=== PATIENT | male | born 1940 | race Two or more races ===

== ENCOUNTER 2023-10-19 18:01 | Inpatient (IN) | payer MEDICARE, MEDICAID ==
[~2023-10-19] VITALS: Ht 167.6 cm; Wt 62.2 kg
[2023-10-19 21:06] LABS: BASOPHILS % (AUTO) 0.5 % (0.0-2.0); EOSINOPHILS % (AUTO) 1.6 % (1.0-6.0); HEMATOCRIT 39.3 % (41-53); HEMOGLOBIN 13.3 g/dL (13.5-17.5); LYMPHOCYTES # (AUTO) 0.5 K/uL (1.0-4.8); LYMPHOCYTES % (AUTO) 10.9 % (22.0-44.0); MEAN CORPUSCULAR HEMOGLOBIN 31.3 pg (26.0-34.0); MEAN CORPUSCULAR HGB CONC 33.9 G/dL (31.0-37.0); MEAN CORPUSCULAR VOLUME 92 fL (80-100); MONOCYTES # (AUTO) 0.4 K/uL (0.1-1.0); MONOCYTES % (AUTO) 9.1 % (2.0-9.0); NEUTROPHILS # (AUTO) 3.5 K/uL (1.8-7.7); NEUTROPHILS % (AUTO) 77.9 % (40.0-70.0); PLATELET COUNT (AUTO) 161 K/uL (150-450); RED BLOOD CELL COUNT(AUTO) 4.26 MIL/uL (4.50-5.90); RED CELL DISTRIBUTION WIDTH 13.7 % (11.5-14.5); WHITE BLOOD COUNT (AUTO) 4.5 K/uL (4.5-11.0)
[2023-10-19 21:16] LABS: ANION GAP 9 mmol/L (8-16); CALCIUM, TOTAL 8.8 mg/dL (8.8-10.5); CARBON DIOXIDE 28 mmol/L (22-29); CHLORIDE 104 mmol/L (98-107); CREATININE 0.87 mg/dL (0.60-1.30); GLOMERULAR FILTR. RATE CALC > 60 mL/min (>60); GLUCOSE,RANDOM 135 mg/dL (70-110); POTASSIUM 3.6 mmol/L (3.5-5.1); SODIUM SERUM 141 mmol/L (136-145); UREA NITROGEN, BLOOD 22 mg/dL (7-18)
[2023-10-19 21:21] LABS: ALANINE AMINOTRANSFERASE 12 U/L (12-78); ALBUMIN 3.5 g/dL (3.4-5.0); ALKALINE PHOSPHATASE 81 U/L (46-116); ASPARTATE AMINOTRANSFERASE 18 U/L (15-37); TOTAL PROTEIN, SERUM 6.5 g/dL (6.4-8.2)
[2023-10-19 21:22] LABS: TROPONIN I-HIGH SENSITIVITY 12 ng/L (<76)
[2023-10-19 21:25] LABS: ALCOHOL, BLOOD (SERUM) < 3 mg/dL (0-10)
[2023-10-20] MEDS: AmLODIPine BESYLATE 5 MG TABLET PO ONE (00:48)
[2023-10-20 00:56] LABS: AMPHET/METH SCREEN,URINE NEGATIVE (NEGATIVE); BARBITURATE SCREEN, URINE NEGATIVE (NEGATIVE); BENZODIAZEPINES SCREEN,URINE NEGATIVE (NEGATIVE); CANNABINOID SCREEN,URINE NEGATIVE (NEGATIVE); COCAINE SCREEN,URINE NEGATIVE (NEGATIVE); METHADONE SCREEN, URINE NEGATIVE (NEGATIVE); OPIATE SCREEN,URINE NEGATIVE (NEGATIVE); PHENCYCLIDINE SCREEN,URINE NEGATIVE (NEGATIVE)
[2023-10-20 00:59] LABS: ALCOHOL, URINE DRUG SCREEN NEGATIVE (NEGATIVE)
[2023-10-20 01:00] LABS: APPEARANCE,URINE CLEAR (CLEAR); BILIRUBIN,URINE NEGATIVE (NEGATIVE); COLOR,URINE LIGHT YELLOW (YELLOW); GLUCOSE, URINE (UA) NEGATIVE (NEGATIVE); KETONES,URINE NEGATIVE (NEGATIVE); LEUKOCYTE ESTERASE ,URINE NEGATIVE (NEGATIVE); NITRATE,URINE NEGATIVE (NEGATIVE); OCCULT BLOOD,URINE TRACE (NEGATIVE); PH,URINE 6.5 (5.0-8.0); PH,URINE DRUG SCREEN 6.5 (5.0-8.0); PROTEIN,URINE TRACE mg/dL (NEGATIVE); SPECIFIC GRAVITIY, URINE 1.024 (1.003-1.030); UROBILINOGEN,URINE <=1.0 mg/dL (<=1.0)
[2023-10-20 01:13] LABS: COVID AG,FIA SOURCE NASAL SWAB
[2023-10-20 01:28] LABS: SARS-COV2 (COVID) ANTIGEN,FIA Negative (Negative)
[2023-10-20 01:41] LABS: BACTERIA,URINE None Seen /HPF (None Seen); RBC,URINE 0-2 /HPF (0-2); SQUAMOUS EPITHELIAL CELL,UR Few /LPF (None Seen); WBC,URINE None Seen /HPF (0-5)
[2023-10-20 02:20] VITALS: BP 177/76; PULSE 61; RESP 18; TEMP 98.1; O2SAT 99
[2023-10-20] MEDS ORDERED: PETROLATUM,WHITE 28 GM JELLY TP PRN (06:30)
[2023-10-20] MEDS ORDERED: ACETAMINOPHEN 325 MG TABLET PO PRN (06:30)
[2023-10-20] MEDS ORDERED: MAG HYDROX/ALUMINUM HYD/SIMETH ES 30 ML SUSPENSION UDCUP PO PRN (06:30)
[2023-10-20] MEDS ORDERED: LOPERAMIDE HCL 2 MG CAPSULE PO PRN (06:30)
[2023-10-20] MEDS ORDERED: NICOTINE 14 MG/24 HOUR PATCH TD PRN (06:30)
[2023-10-20] MEDS ORDERED: ALBUTEROL SULFATE HFA 90 MCG/PUFF 8 GM INHALER IH PRN (06:30)
[2023-10-20] MEDS ORDERED: ONDANSETRON HCL 4 MG TABLET PO PRN (06:30)
[2023-10-20] MEDS ORDERED: DOCUSATE SODIUM 100 MG CAPSULE PO PRN (06:30)
[2023-10-20] MEDS: AmLODIPine BESYLATE 5 MG TABLET PO SCH (11:02)
[2023-10-20] MEDS: OLANZapine 5 MG TABLET PO SCH (11:03)
[2023-10-20 14:40] VITALS: BP 165/75; PULSE 73; RESP 18; TEMP 98.6; O2SAT 95
[2023-10-20 20:43] VITALS: BP 156/71; PULSE 53; RESP 18; TEMP 97.9; O2SAT 97
[2023-10-21 07:35] LABS: BASOPHILS % (AUTO) 0.5 % (0.0-2.0); EOSINOPHILS % (AUTO) 3.3 % (1.0-6.0); HEMATOCRIT 41.5 % (41-53); HEMOGLOBIN 14.3 g/dL (13.5-17.5); LYMPHOCYTES # (AUTO) 0.4 K/uL (1.0-4.8); LYMPHOCYTES % (AUTO) 7.8 % (22.0-44.0); MEAN CORPUSCULAR HEMOGLOBIN 31.9 pg (26.0-34.0); MEAN CORPUSCULAR HGB CONC 34.6 G/dL (31.0-37.0); MEAN CORPUSCULAR VOLUME 92 fL (80-100); MONOCYTES # (AUTO) 0.5 K/uL (0.1-1.0); MONOCYTES % (AUTO) 9.7 % (2.0-9.0); NEUTROPHILS # (AUTO) 4.3 K/uL (1.8-7.7); NEUTROPHILS % (AUTO) 78.7 % (40.0-70.0); PLATELET COUNT (AUTO) 161 K/uL (150-450); RED BLOOD CELL COUNT(AUTO) 4.49 MIL/uL (4.50-5.90); RED CELL DISTRIBUTION WIDTH 13.7 % (11.5-14.5); WHITE BLOOD COUNT (AUTO) 5.5 K/uL (4.5-11.0)
[2023-10-21 07:58] LABS: ALANINE AMINOTRANSFERASE 12 U/L (12-78); ALBUMIN 3.3 g/dL (3.4-5.0); ALKALINE PHOSPHATASE 75 U/L (46-116); ANION GAP 10 mmol/L (8-16); ASPARTATE AMINOTRANSFERASE 17 U/L (15-37); BILIRUBIN,TOTAL 1.5 mg/dL (0.1-1.0); CALCIUM, TOTAL 8.5 mg/dL (8.8-10.5); CARBON DIOXIDE 29 mmol/L (22-29); CHLORIDE 106 mmol/L (98-107); CHOL/HDL RATIO 3.4 (4.2-7.3); CHOLESTEROL 210 mg/dL (131-200); CREATININE 0.55 mg/dL (0.60-1.30); GLOMERULAR FILTR. RATE CALC > 60 mL/min (>60); GLUCOSE,RANDOM 104 mg/dL (70-110); HDL CHOLESTEROL 62 mg/dL (40-60); LDL CHOL (CALC.) 138 mg/dL (0-130); POTASSIUM 3.4 mmol/L (3.5-5.1); SODIUM SERUM 145 mmol/L (136-145); TOTAL PROTEIN, SERUM 6.6 g/dL (6.4-8.2); TRIGLYCERIDES 49 mg/dL (15-150); UREA NITROGEN, BLOOD 13 mg/dL (7-18)
[2023-10-21 08:01] LABS: HEMOGLOBIN A1C 5.6 % (3.8-5.6)
[2023-10-21 08:22] LABS: THYROID STIMULATING HORMONE 2.87 uIU/mL (0.36-3.74)
[2023-10-21 10:27] VITALS: BP 179/84; PULSE 71; RESP 18; TEMP 98.1; O2SAT 98
[2023-10-21] MEDS: POTASSIUM CHLORIDE 20 MEQ ER TABLET PO ONE (17:32)
[2023-10-21] MEDS: ZOLPIDEM TARTRATE 10 MG TABLET PO PRN (22:34)
[2023-10-22 00:15] VITALS: BP 122/61; PULSE 70; RESP 18; TEMP 97; O2SAT 98
[2023-10-22 09:27] VITALS: BP 149/79; PULSE 84; RESP 18; TEMP 98; O2SAT 96
[2023-10-22 21:25] VITALS: RESP 18
[2023-10-23] MEDS: LORazepam 2 MG TABLET PO PRN (00:07)
[2023-10-23 09:22] VITALS: BP 162/83; PULSE 70; RESP 20; O2SAT 96
[2023-10-23] MEDS: GuaiFENesin/D-METHORPHAN [SUGAR-FREE] 200-20MG/10 ML SYRUP UDCUP PO PRN (14:22)
[2023-10-23] MEDS: AZITHROMYCIN 500 MG TABLET PO SCH (15:36)
[2023-10-23 20:07] VITALS: BP 132/82; PULSE 84; RESP 18; TEMP 97.4; O2SAT 97
[2023-10-24 08:35] VITALS: BP 144/73; PULSE 90; RESP 18; TEMP 98; O2SAT 98
[2023-10-24 21:07] VITALS: BP 123/77; PULSE 76; RESP 18; TEMP 98.1; O2SAT 97
[2023-10-25 08:00] VITALS: BP 138/69; PULSE 78; RESP 18; TEMP 97; O2SAT 96
[2023-10-25] MEDS: MULTIVITAMINS WITH MINERALS, THERAPEUTIC TABLET PO SCH (08:42)
[2023-10-25 09:07] VITALS: BP 138/69; PULSE 78; RESP 18; TEMP 97; O2SAT 96
[2023-10-25] MEDS: IBUPROFEN 400 MG TABLET PO PRN (09:07)
[2023-10-26 06:47] LABS: ANION GAP 7 mmol/L (8-16); BASOPHILS % (AUTO) 0.4 % (0.0-2.0); CALCIUM, TOTAL 8.8 mg/dL (8.8-10.5); CARBON DIOXIDE 28 mmol/L (22-29); CHLORIDE 103 mmol/L (98-107); CREATININE 0.65 mg/dL (0.60-1.30); EOSINOPHILS % (AUTO) 1.6 % (1.0-6.0); GLOMERULAR FILTR. RATE CALC > 60 mL/min (>60); GLUCOSE,RANDOM 134 mg/dL (70-110); HEMOGLOBIN 14.6 g/dL (13.5-17.5); LYMPHOCYTES # (AUTO) 0.4 K/uL (1.0-4.8); LYMPHOCYTES % (AUTO) 6.2 % (22.0-44.0); MEAN CORPUSCULAR HEMOGLOBIN 31.8 pg (26.0-34.0); MEAN CORPUSCULAR HGB CONC 33.9 G/dL (31.0-37.0); MEAN CORPUSCULAR VOLUME 94 fL (80-100); MONOCYTES # (AUTO) 0.8 K/uL (0.1-1.0); MONOCYTES % (AUTO) 11.9 % (2.0-9.0); NEUTROPHILS # (AUTO) 5.4 K/uL (1.8-7.7); NEUTROPHILS % (AUTO) 79.9 % (40.0-70.0); PLATELET COUNT (AUTO) 159 K/uL (150-450); POTASSIUM 3.9 mmol/L (3.5-5.1); RED BLOOD CELL COUNT(AUTO) 4.58 MIL/uL (4.50-5.90); RED CELL DISTRIBUTION WIDTH 13.5 % (11.5-14.5); SODIUM SERUM 138 mmol/L (136-145); UREA NITROGEN, BLOOD 22 mg/dL (7-18); WHITE BLOOD COUNT (AUTO) 6.7 K/uL (4.5-11.0)
[2023-10-26 08:39] VITALS: BP 151/77; PULSE 78; RESP 18; TEMP 98.6; O2SAT 95
[2023-10-26 20:08] VITALS: BP 128/77; PULSE 62; RESP 18; TEMP 97.1; O2SAT 98
[2023-10-27 08:36] VITALS: BP 148/76; PULSE 84; RESP 18; TEMP 97.4
[2023-10-27 22:11] VITALS: BP 132/77; PULSE 78; RESP 18; TEMP 97.4; O2SAT 97
[2023-10-28 08:56] VITALS: RESP 18; TEMP 98.3
[2023-10-28 21:32] VITALS: BP 125/62; PULSE 74; RESP 18; TEMP 98.1; O2SAT 97
[2023-10-29 08:02] VITALS: BP 123/72; PULSE 72; RESP 18; TEMP 97.1; O2SAT 98
[2023-10-29 21:19] VITALS: BP 138/75; PULSE 68; RESP 18; TEMP 97.8; O2SAT 97
[2023-10-30 18:37] VITALS: RESP 18
[2023-10-30 20:14] VITALS: BP 121/77; PULSE 76; RESP 18; TEMP 97.4; O2SAT 98
[2023-10-31 08:05] VITALS: BP 146/76; PULSE 77; RESP 18; TEMP 97.1; O2SAT 97
[2023-10-31 20:44] VITALS: BP 133/82; PULSE 82; RESP 18; TEMP 97.9; O2SAT 98
[2023-11-01 08:15] VITALS: BP 155/79; PULSE 69; RESP 17; TEMP 98.4; O2SAT 95
[2023-11-01 20:03] VITALS: BP 121/81; PULSE 72; RESP 18; TEMP 97.9; O2SAT 98
[2023-11-02 08:20] VITALS: BP_SYST 129; BP_SYST 172; BP_DIAS 72; BP_DIAS 82; PULSE 76; RESP 16; TEMP 97.2; O2SAT 97
[2023-11-02 22:48] VITALS: BP 125/70; PULSE 71; RESP 18; TEMP 97.5; O2SAT 98
[2023-11-03 08:30] VITALS: BP 146/92; PULSE 79; RESP 18; TEMP 98.5; O2SAT 96
[2023-11-03 21:08] VITALS: BP 115/71; PULSE 76; RESP 18; TEMP 98.3; O2SAT 97
[2023-11-03 21:24] VITALS: BP 115/71; PULSE 76; RESP 18; TEMP 98.3; O2SAT 97
[2023-11-04 09:18] VITALS: BP 149/74; PULSE 66; RESP 19; TEMP 97.8; O2SAT 98
[2023-11-04 20:43] VITALS: BP 137/67; PULSE 65; RESP 18; TEMP 97.6; O2SAT 97
[2023-11-05 12:00] VITALS: BP 132/83; PULSE 74; RESP 18; TEMP 98.2; O2SAT 98
[2023-11-05 20:47] VITALS: RESP 18
[2023-11-06 11:39] VITALS: BP 133/65; PULSE 86; RESP 19; TEMP 97.6; O2SAT 95
[2023-11-06 22:39] VITALS: RESP 18
[2023-11-07 09:02] VITALS: BP 125/65; PULSE 70; RESP 17; TEMP 98.1; O2SAT 97
[2023-11-07] MEDS: MAGNESIUM HYDROXIDE SUSPENSION 30 ML UDCUP PO PRN (09:35)
[2023-11-07 21:21] VITALS: BP 113/61; PULSE 70; RESP 18; TEMP 97.9; O2SAT 97
[2023-11-08 09:44] VITALS: BP 117/63; PULSE 65; RESP 17; TEMP 97.7; O2SAT 96
[2023-11-08 20:45] VITALS: BP 120/61; PULSE 71; RESP 18; TEMP 98.5; O2SAT 96
[2023-11-09 10:04] VITALS: BP 130/70; PULSE 80; RESP 17; TEMP 97.6; O2SAT 97
[2023-11-09 21:02] VITALS: BP 128/71; PULSE 77; RESP 18; TEMP 97.4; O2SAT 98
[2023-11-10 09:05] VITALS: BP 113/66; PULSE 65; RESP 17; TEMP 98.2; O2SAT 97
[2023-11-10 21:51] VITALS: BP 119/64; PULSE 70; RESP 18; TEMP 97.8; O2SAT 98
[2023-11-11 08:25] VITALS: BP 160/78; PULSE 67; RESP 20; TEMP 97.9; O2SAT 97
[2023-11-11 20:19] VITALS: BP 134/78; PULSE 74; RESP 18; TEMP 98.1; O2SAT 98
[2023-11-12 08:34] VITALS: BP 163/77; PULSE 66; RESP 16; TEMP 98; O2SAT 98
[2023-11-12 10:29] VITALS: BP 146/74; PULSE 68; RESP 18
[2023-11-12 20:08] VITALS: BP 121/81; PULSE 72; RESP 18; TEMP 98.1; O2SAT 92
[2023-11-13] MEDS: HALOPERIDOL 5 MG TABLET PO PRN (01:59)
[2023-11-13 09:57] VITALS: BP 160/87; PULSE 65; RESP 18; TEMP 98; O2SAT 96
[2023-11-13 22:59] VITALS: BP 135/72; PULSE 68; RESP 18; TEMP 98.2; O2SAT 97
[2023-11-14 10:42] VITALS: BP 118/60; PULSE 78; RESP 18; TEMP 98; O2SAT 97
[2023-11-14 21:35] VITALS: RESP 18
[2023-11-15 08:38] VITALS: BP 156/68; PULSE 65; RESP 18; TEMP 97.1; O2SAT 98
[2023-11-15 21:20] VITALS: BP 139/71; PULSE 63; RESP 18; TEMP 97.6; O2SAT 98
[2023-11-16 08:13] VITALS: BP 151/68; PULSE 64; RESP 18; TEMP 97.4; O2SAT 97
[2023-11-16 21:58] VITALS: BP 127/62; PULSE 77; RESP 18; TEMP 97.8; O2SAT 97
[2023-11-17 09:47] VITALS: BP 115/67; PULSE 67; RESP 18; TEMP 97.2; O2SAT 96
[2023-11-17 20:34] VITALS: TEMP 97.8
[2023-11-18 08:14] VITALS: BP 130/65; PULSE 61; RESP 17; TEMP 97; O2SAT 97
[2023-11-18 22:00] VITALS: BP 152/75; PULSE 59; RESP 16; TEMP 98.3; O2SAT 96
[2023-11-19 09:10] VITALS: BP 158/73; PULSE 70; RESP 16; TEMP 97.3; O2SAT 97
[2023-11-19 21:27] VITALS: BP 179/81; PULSE 67; RESP 18; TEMP 98.2; O2SAT 98
[2023-11-20 08:00] VITALS: BP 124/63; PULSE 77; RESP 18; TEMP 97.7; O2SAT 98
[2023-11-20 09:55] VITALS: BP 124/63; PULSE 78; RESP 17; TEMP 98; O2SAT 96
[2023-11-20 20:11] VITALS: BP 113/58; PULSE 68; RESP 18; TEMP 97.6; O2SAT 98
[2023-11-21 09:08] VITALS: BP 158/70; PULSE 63; RESP 18; TEMP 97.3; O2SAT 99
[2023-11-21 20:50] VITALS: BP 132/61; PULSE 66; RESP 18; TEMP 97.6; O2SAT 98
[2023-11-22 09:09] VITALS: BP 158/80; PULSE 79; RESP 18; TEMP 98.4; O2SAT 98
[2023-11-22 21:24] VITALS: BP 118/71; PULSE 64; RESP 18; TEMP 97.9; O2SAT 98
[2023-11-23 10:35] VITALS: BP 140/69; PULSE 63; RESP 18; TEMP 96.9; O2SAT 99
[2023-11-23 22:34] VITALS: BP 135/66; PULSE 62; RESP 18; TEMP 96.9; O2SAT 99
[2023-11-24 08:40] VITALS: BP 159/83; PULSE 62; RESP 18; TEMP 97.6; O2SAT 99
[2023-11-24 20:06] VITALS: BP 126/79; PULSE 78; RESP 18; TEMP 97.1; O2SAT 98
[2023-11-25 09:58] VITALS: BP 119/66; PULSE 68; RESP 18; TEMP 97.5; O2SAT 98
[2023-11-25 23:09] VITALS: BP 139/66; PULSE 72; RESP 18; TEMP 97.7; O2SAT 98
[2023-11-26 08:44] VITALS: BP 119/60; PULSE 72; RESP 18; TEMP 98; O2SAT 97
[2023-11-26 20:09] VITALS: BP 123/70; PULSE 74; RESP 18; TEMP 97.3; O2SAT 98
[2023-11-27 08:02] VITALS: BP 130/80; PULSE 72; RESP 18; TEMP 97.6; O2SAT 99
[2023-11-27 21:04] VITALS: BP 161/75; PULSE 66; RESP 18; TEMP 98.1; O2SAT 98
[2023-11-28 08:37] VITALS: BP 141/60; PULSE 68; RESP 18; TEMP 97.4; O2SAT 97
[2023-11-28 21:28] VITALS: BP 134/59; PULSE 62; RESP 18; TEMP 98; O2SAT 95
[2023-11-29 08:02] VITALS: BP 171/75; PULSE 65; RESP 18; TEMP 98.3; O2SAT 97
[2023-11-29 20:44] VITALS: BP 147/66; PULSE 73; RESP 18; TEMP 98.3; O2SAT 97
[2023-11-30 08:57] VITALS: BP 114/55; PULSE 52; RESP 18; TEMP 97.2; O2SAT 96
[2023-11-30 21:25] VITALS: BP 112/61; PULSE 68; RESP 18; TEMP 98.4; O2SAT 98
[2023-12-01 10:23] VITALS: RESP 18; TEMP 97.7
[2023-12-01 22:04] VITALS: BP 154/75; PULSE 68; RESP 18; TEMP 98.7; O2SAT 96
[2023-12-02 08:35] VITALS: BP 117/58; PULSE 60; RESP 18; TEMP 97.8; O2SAT 98
[2023-12-02 23:10] VITALS: BP 132/65; PULSE 64; RESP 18; TEMP 98; O2SAT 97
[2023-12-03 08:03] VITALS: BP 174/79; PULSE 69; RESP 18; TEMP 98.4; O2SAT 95
[2023-12-03] MEDS: CloNIDine HCL 0.1 MG TABLET PO PRN (08:16)
[2023-12-03 23:25] VITALS: BP 116/60; PULSE 63; RESP 18; TEMP 97.5; O2SAT 94
[2023-12-04 10:02] VITALS: BP 115/57; PULSE 73; RESP 19; TEMP 97; O2SAT 97
[2023-12-04 21:25] VITALS: RESP 18
[2023-12-04 21:29] VITALS: BP 129/70; PULSE 60; RESP 18; TEMP 98.1; O2SAT 96
[2023-12-05 09:52] VITALS: BP 137/65; PULSE 65; RESP 19; TEMP 97.9; O2SAT 95
[2023-12-05 21:03] VITALS: BP 114/59; PULSE 62; RESP 18; TEMP 97.5; O2SAT 98
[2023-12-06 08:41] VITALS: BP 151/82; PULSE 72; RESP 18; TEMP 98.2; O2SAT 95
[2023-12-06 09:00] LABS: BASOPHILS % (AUTO) 0.5 % (0.0-2.0); HEMATOCRIT 39.9 % (41-53); HEMOGLOBIN 13.4 g/dL (13.5-17.5); LYMPHOCYTES # (AUTO) 0.6 K/uL (1.0-4.8); LYMPHOCYTES % (AUTO) 12.7 % (22.0-44.0); MEAN CORPUSCULAR HEMOGLOBIN 31.5 pg (26.0-34.0); MEAN CORPUSCULAR HGB CONC 33.6 G/dL (31.0-37.0); MEAN CORPUSCULAR VOLUME 94 fL (80-100); MONOCYTES # (AUTO) 0.4 K/uL (0.1-1.0); MONOCYTES % (AUTO) 8.1 % (2.0-9.0); NEUTROPHILS # (AUTO) 3.2 K/uL (1.8-7.7); NEUTROPHILS % (AUTO) 73.7 % (40.0-70.0); PLATELET COUNT (AUTO) 191 K/uL (150-450); RED BLOOD CELL COUNT(AUTO) 4.25 MIL/uL (4.50-5.90); RED CELL DISTRIBUTION WIDTH 13.2 % (11.5-14.5); WHITE BLOOD COUNT (AUTO) 4.4 K/uL (4.5-11.0)
[2023-12-06 09:03] LABS: ANION GAP 6 mmol/L (8-16); CALCIUM, TOTAL 9.1 mg/dL (8.8-10.5); CARBON DIOXIDE 29 mmol/L (22-29); CHLORIDE 104 mmol/L (98-107); CREATININE 0.92 mg/dL (0.60-1.30); GLOMERULAR FILTR. RATE CALC > 60 mL/min (>60); GLUCOSE,RANDOM 173 mg/dL (70-110); SODIUM SERUM 139 mmol/L (136-145); UREA NITROGEN, BLOOD 20 mg/dL (7-18)
[2023-12-06 20:34] VITALS: BP 136/67; PULSE 55; RESP 18; TEMP 97.5; O2SAT 98
[2023-12-07 08:54] VITALS: BP 134/77; PULSE 61; RESP 18; TEMP 97.8; O2SAT 98
[2023-12-07 20:10] VITALS: BP 108/61; PULSE 67; RESP 18; TEMP 97.8; O2SAT 97
[2023-12-08 13:27] VITALS: BP 167/74; PULSE 70; RESP 18; TEMP 98.2; O2SAT 95
[2023-12-08 20:04] VITALS: BP 121/77; PULSE 62; RESP 18; TEMP 97.1; O2SAT 97
[2023-12-09 08:12] VITALS: BP 120/68; PULSE 64; RESP 18; TEMP 97.3; O2SAT 96
[2023-12-09 20:41] VITALS: BP 113/52; PULSE 60; RESP 18; TEMP 98.1; O2SAT 96
[2023-12-10 08:04] VITALS: BP 131/61; PULSE 56; RESP 18; TEMP 98.7; O2SAT 97
[2023-12-10 20:31] VITALS: BP 112/63; PULSE 59; RESP 17; TEMP 98; O2SAT 97
[2023-12-11 22:31] VITALS: BP 132/62; PULSE 64; RESP 18; TEMP 98.7; O2SAT 96
[2023-12-12 08:52] VITALS: BP 135/58; PULSE 61; RESP 18; TEMP 98.9; O2SAT 98
[2023-12-12 20:33] VITALS: BP 126/66; PULSE 62; RESP 18; TEMP 98.2; O2SAT 99
[2023-12-13 08:08] VITALS: BP 130/68; PULSE 69; RESP 18; TEMP 97.9; O2SAT 96
[2023-12-13 22:48] VITALS: BP 135/60; PULSE 65; RESP 18; TEMP 98; O2SAT 96
[2023-12-14 08:18] VITALS: BP 156/73; PULSE 60; RESP 18; TEMP 97.6; O2SAT 97
[2023-12-14 20:56] VITALS: BP 125/63; PULSE 65; RESP 18; TEMP 98.6; O2SAT 97
[2023-12-15 08:01] LABS: APPEARANCE,URINE CLEAR (CLEAR); BILIRUBIN,URINE NEGATIVE (NEGATIVE); COLOR,URINE LIGHT YELLOW (YELLOW); GLUCOSE, URINE (UA) NEGATIVE (NEGATIVE); KETONES,URINE NEGATIVE (NEGATIVE); LEUKOCYTE ESTERASE ,URINE NEGATIVE (NEGATIVE); NITRATE,URINE NEGATIVE (NEGATIVE); OCCULT BLOOD,URINE NEGATIVE (NEGATIVE); PROTEIN,URINE NEGATIVE (NEGATIVE); UROBILINOGEN,URINE <=1.0 mg/dL (<=1.0)
[2023-12-15 08:37] VITALS: BP 129/78; PULSE 64; RESP 16; TEMP 98.2; O2SAT 97
[2023-12-15 20:28] VITALS: BP 128/79; PULSE 66; RESP 18; TEMP 97.9; O2SAT 97
[2023-12-16 09:08] VITALS: BP 145/65; PULSE 60; RESP 19; TEMP 98; O2SAT 98
[2023-12-16 20:09] VITALS: BP 128/81; PULSE 76; RESP 18; TEMP 97.9; O2SAT 97
[2023-12-17 08:51] VITALS: BP 128/62; PULSE 53; RESP 18; TEMP 98.2; O2SAT 97
[2023-12-17 08:57] VITALS: BP 128/62; PULSE 54; RESP 18; TEMP 98.2; O2SAT 97
[2023-12-17 20:06] VITALS: BP 138/82; PULSE 82; RESP 18; TEMP 97.6; O2SAT 98
[2023-12-18 08:00] VITALS: BP 122/61; PULSE 69; RESP 20; TEMP 97.8; O2SAT 95
[2023-12-18 20:12] VITALS: BP 152/76; PULSE 62; RESP 18; TEMP 98.7; O2SAT 98
[2023-12-19 08:15] VITALS: BP 141/61; PULSE 86; RESP 17; TEMP 98; O2SAT 96
[2023-12-19 20:34] VITALS: BP 139/84; PULSE 86; RESP 18; TEMP 97.9; O2SAT 86
[2023-12-19 20:36] VITALS: BP 139/84; PULSE 86; RESP 18; TEMP 97.9; O2SAT 97
[2023-12-20 10:48] VITALS: BP 147/67; PULSE 72; RESP 17; TEMP 97.8; O2SAT 95
[2023-12-20 20:50] VITALS: BP 165/76; PULSE 64; RESP 18; TEMP 97.4; O2SAT 97
[2023-12-21 08:35] VITALS: BP 125/69; PULSE 98; RESP 18; TEMP 97.9; O2SAT 98
[2023-12-21 21:10] VITALS: BP 161/71; PULSE 64; RESP 18; TEMP 98.1; O2SAT 98
[2023-12-22 08:49] VITALS: BP 126/60; PULSE 62; RESP 18; TEMP 98.4; O2SAT 96
[2023-12-22 20:24] VITALS: BP 132/78; PULSE 64; RESP 18; TEMP 98.1; O2SAT 98
[2023-12-22 21:46] VITALS: BP 132/72; PULSE 64; RESP 18; TEMP 98.1
[2023-12-22 21:49] VITALS: BP 132/72; PULSE 64; RESP 18; TEMP 98.1; O2SAT 98
[2023-12-23 08:49] VITALS: BP 151/62; PULSE 60; RESP 18; TEMP 98.1; O2SAT 95
[2023-12-23 23:46] VITALS: RESP 18
[2023-12-24 08:19] VITALS: BP 144/62; PULSE 60; RESP 17; TEMP 98.2; O2SAT 98
[2023-12-24 20:48] VITALS: BP 132/81; PULSE 64; RESP 18; TEMP 98.1; O2SAT 99
[2023-12-25 11:39] VITALS: BP 143/64; PULSE 63; RESP 16; TEMP 98; O2SAT 96
== END 2023-12-25 19:08 | DRG 884 ==
LOC: EMS 18:06 → 3EI 10-20 00:09
PROVIDERS: ADMIT Psychiatry & Neurology Child & Adolescent Psychiatry; ATTEND Psychiatry & Neurology Child & Adolescent Psychiatry
PROC: GZHZZZZ Group Psychotherapy (ICD-10-PCS; principal; 2023-10-20)
PROC: GZ58ZZZ Individual Psychotherapy, Cognitive-Behavioral (ICD-10-PCS; 2023-10-20)
PROC: GZ56ZZZ Individual Psychotherapy, Supportive (ICD-10-PCS; 2023-10-20)
DX: F03.90 Unspecified dementia, unspecified severity, without behavioral disturbance, psychotic disturbance, mood disturbance, and anxiety (principal); F20.9 Schizophrenia, unspecified; E78.5 Hyperlipidemia, unspecified; E87.6 Hypokalemia; Z20.822 Contact with and (suspected) exposure to COVID-19; J06.9 Acute upper respiratory infection, unspecified; D64.9 Anemia, unspecified; R62.7 Adult failure to thrive; Z91.81 History of falling; Z68.22 Body mass index [BMI] 22.0-22.9, adult; F29 Unspecified psychosis not due to a substance or known physiological condition
CPT/HCPCS: 71045; 71046; 80048; 80053; 80061; 80307; 81001; 81003; 83036; 84132; 84443; 84484; 85025; 93005; 97110; 97116; 97162; 97166; 97530; 97535; 99285; G0480; Q9967; 36415-L1; 36415-TC